=== PATIENT | male | born 1995 | race Two or more races ===

== ENCOUNTER 2019-12-23 21:32 | Emergency (ER) | payer SELFPAY ==
[2019-12-23] MEDS ORDERED: HYDROCODONE/ACETAMINOPHEN 5-325 MG TABLET PO ONE (22:22)
--- NOTE | 2019-12-23 22:23 | ER Document Report ---
HPI - HPI Patient complains to provider of: Right ankle injury Time Seen by Provider: 12/23/19 22:18 Context: 24-year-old male presents to the emergency room complaining of right ankle pain and swelling. Patient states he jumped off the back of a [employer] trailer falling in a hole and twisting and injuring his right ankle. States is able to walk but is painful. No history of previous fractures to his ankle. No medications prior to arrival for pain. Associated Symptoms: None Exacerbated by: Movement, Walking Relieved by: Denies Similar symptoms previously: No Recently seen / treated by doctor: No - ROS Systems Reviewed and Negative: Yes All other systems reviewed and negative - NEURO Neurology: DENIES: Weakness - MUSCULOSKELETAL Musculoskeletal: REPORTS: Extremity pain - DERM Skin Color: Normal Skin Problems: None Past Medical History - General Information source: Patient - Social History Smoking Status: Never Smoker Frequency of alcohol use: Occasional Drug Abuse: None Family History: Reviewed & Not Pertinent Vertical Provider Document - CONSTITUTIONAL Agree With Documented VS: Yes Exam Limitations: No Limitations General Appearance: Mild Distress - HEENT HEENT: Atraumatic, Normocephalic - NECK Neck: Normal Inspection, Supple, Thyroid Normal - RESPIRATORY Respiratory: Breath Sounds Normal, No Respiratory Distress, Chest Non-Tender - CARDIOVASCULAR Cardiovascular: Regular Rate, Regular Rhythm, No Murmur - MUSCULOSKELETAL/EXTREMETIES Musculoskeletal/Extremeties: Tender - Tenderness and swelling noted to the right lateral malleus. Painful range of motion with eversion and inversion. No pain with flexion or extension of the right ankle. - NEURO Level of Consciousness: Awake, Alert, Appropriate Motor/Sensory: No Motor Deficit, No Sensory Deficit, No Pronator Drift Notes: Positive right pedal pulse. Capillary refill less than 3 seconds. Gait not tested secondary to pain - DERM Integumentary: Warm, Dry, No Rash Course - Re-evaluation Re-evalutation: 12/24/19 00:10 Patient is resting comfortably with decreased pain. Reviewed x-ray results with patient. Aircast and crutches applied by nursing staff as documented. Counseled to rest, ice, elevate weightbearing as tolerated. Outpatient follow- up with orthopedics if not improving in 2 to 3 days. On-call physician was provided. Patient was given strict return to the emergency room guidelines. Return for any new or worsening symptoms. All questions were answered. Patient verbalized understanding and agrees with plan of care. 12/24/19 14:38 - Vital Signs Vital signs: Temp Pulse Resp BP Pulse Ox 98.3 F 99 18 140/87 H 100 12/23/19 22:17 12/23/19 22:17 12/23/19 22:17 12/23/19 22:17 12/23/19 22:17 - Diagnostic Test Radiology reviewed: Reports reviewed Procedures - Immobilization Right Ankle Time completed: 00:10 Pre-Proc Neuro Vasc Exam: Normal Immobilizer type: Ankle stirrup, Crutches Performed by: Other - CREDIT ADMINISTRATION OFFICER Post-Proc Neuro Vasc Exam: Normal Alignment checked and good: Yes Discharge - Discharge Clinical Impression: Right ankle sprain Condition: Stable Disposition: HOME, SELF-CARE Instructions: Ankle Stirrup Splint ([facility]), Use of Crutches ([facility]), Ice & Elevation ([facility]), Sprained Ankle ([facility]) Additional Instructions: Can remove splint for bed and bathing.. Weightbearing as tolerated. Outpatient follow-up with orthopedics if not improving in 2 to 3 days. Tylenol and/or Motrin as needed for pain. Return to the emergency room for any new or worsening symptoms. Referrals: GHANSHYAM DRAPER MD [ACTIVE STAFF] - Follow up as needed
--- NOTE | 2019-12-23 23:24 | RADIOLOGY REPORT (SQ) ---
EXAM DESCRIPTION: X-ray, three views of the right ankle CLINICAL HISTORY: 24 years Male, injury jumped off of a moving truck. Pain. COMPARISON: None. FINDINGS: Soft tissue swelling is noted adjacent to the fibula. The ankle mortise is intact. Bone mineralization is normal. No fracture is seen. On the lateral view there is an ankle effusion. IMPRESSION: Soft tissue injury with ankle effusion and soft tissue swelling. No fracture.
[2019-12-24 00:15] VITALS: BP 137/81
== END 2019-12-24 00:15 | disposition home or self-care (01) ==
LOC: ER 21:32
DX: S93.401A Sprain of unspecified ligament of right ankle, initial encounter (principal); W17.89XA Other fall from one level to another, initial encounter; Y93.39 Activity, other involving climbing, rappelling and jumping off
CPT/HCPCS: 99283